=== PATIENT | female | born 1965 | race Caucasian/White ===

== ENCOUNTER 2018-02-04 12:13 | Inpatient (IN) | payer BC ==
[2018-02-04 13:24] LABS: ADD MAN DIFF? NO
[2018-02-04 13:38] LABS: WHITE BLOOD COUNT 7.7 10^3/ul (4.8-10.8)
[2018-02-04 13:38] LABS: BASOPHIL # 0.1 10^3/ul (0.0-0.1); BASOPHILS % 0.8 % (0.0-2.0); EOSINOPHILS # 0.3 10^3/ul (0.0-0.5); EOSINOPHILS % 3.9 % (0.0-7.0); HEMATOCRIT 40.5 % (37.0-47.0); HEMOGLOBIN 13.4 g/dl (12.0-16.0); LYMPHOCYTES # 1.9 10^3/ul (0.8-2.9); LYMPHOCYTES % 24.8 % (15.0-51.0); MEAN CORPUSCULAR HEMOGLOBIN 29.8 pg (29.0-33.0); MEAN CORPUSCULAR HGB CONC 33.1 g/dl (32.0-37.0); MEAN PLATELET VOLUME 9.5 fl (7.4-10.4); MONOCYTE # 0.7 10^3/ul (0.3-0.9); MONOCYTES % 9.5 % (0.0-11.0); NEUTROPHIL # 4.7 10^3/ul (1.6-7.5); NEUTROPHILS % 60.7 % (39.0-77.0); PLATELET COUNT 325 10^3/UL (140-415); RED CELL DISTRIBUTION WIDTH 14.5 % (11.5-14.5)
[2018-02-04 13:54] LABS: ALANINE AMINOTRANSFERASE 42 IU/L (13-69); ALBUMIN 4.7 g/dl (3.3-4.9); ALBUMIN/GLOBULIN RATIO 1.51; ALKALINE PHOSPHATASE 73 IU/L (42-121); ANION GAP 15 (8-16); ASPARTATE AMINO TRANSFERASE 23 IU/L (15-46); BILIRUBIN,INDIRECT 0.2 mg/dl (0-1.1); BILIRUBIN,TOTAL 0.2 mg/dl (0.2-1.3); CARBON DIOXIDE 24 mmol/L (21-31); CHLORIDE 107 mmol/L (97-110); GLUCOSE 95 mg/dl (70-220); TOTAL PROTEIN 7.8 g/dl (6.1-8.1)
[2018-02-04] MEDS ORDERED: GELATIN SIZE 100 SPONGE (13:54)
[2018-02-04 13:56] LABS: BLOOD UREA NITROGEN 18 mg/dl (7-20); CALCIUM 9.6 mg/dl (8.4-10.2); CREATININE 0.77 mg/dl (0.44-1.00); SODIUM 142 mmol/L (135-144)
[2018-02-04 13:57] LABS: INR 0.94; PROTIME 12.7 Sec (11.9-14.9)
[2018-02-04] MEDS ORDERED: ROCURONIUM 50 MG INJ ×2 (14:27→16:48)
[2018-02-04] MEDS ORDERED: GLYCOPYRROLATE 0.4 MG INJ ×3 (14:27→16:48)
[2018-02-04] MEDS ORDERED: SUCCINYLCHOLINE CHLORIDE 100 MG/5 ML SYG IV (14:27)
[2018-02-04] MEDS ORDERED: LIDOCAINE 2% (SDV) 5 ML INJ (14:27)
[2018-02-04] MEDS ORDERED: PROPOFOL 20 ML (14:27)
[2018-02-04] MEDS ORDERED: NEOSTIGMINE 3 MG/3 ML SYRINGE ×2 (14:27→16:48)
[2018-02-04] MEDS ORDERED: MEPERIDINE 100 MG INJ (14:27)
[2018-02-04] MEDS ORDERED: CEFAZOLIN 1 GM INJ (15:08)
[2018-02-04] MEDS: POLYMYXIN B 500000 UNIT INJ (15:47)
[2018-02-04] MEDS: THROMBIN 5000 UNIT VIAL (15:47)
[2018-02-04] MEDS: BACITRACIN 50000 UNITS INJ (15:47)
[2018-02-04] MEDS ORDERED: METOCLOPRAMIDE 10 MG INJ (16:47)
[2018-02-04] MEDS ORDERED: ONDANSETRON 4 MG INJ (16:47)
[2018-02-04] MEDS ORDERED: HYDROmorphONE (0.2 MG/ML) 10ML SYG IV ×2 (18:30)
[2018-02-04] MEDS ORDERED: HYDROmorphONE 1 MG/ML SYG IV (18:30)
[2018-02-04] MEDS ORDERED: LABETALOL HCL 20MG INJ IV (18:30)
[2018-02-04] MEDS ORDERED: MEPERIDINE 25 MG INJ IV (18:30)
[2018-02-04] MEDS ORDERED: DIPHENHYDRAMINE 25 MG CAP PO (18:30)
[2018-02-04] MEDS ORDERED: FENTAnyl 50 MCG/ML VIAL IV ×3 (18:30)
[2018-02-04] MEDS ORDERED: DIAZEPAM 5 MG TAB PO (18:30)
[2018-02-04] MEDS ORDERED: NALOXONE (0.4 MG/ML) INJ IV (18:30)
[2018-02-04] MEDS ORDERED: EPHEDrine SULFATE 50 MG/5 ML SYG IV (18:30)
[2018-02-04] MEDS ORDERED: ZOLPIDEM 5 MG TAB PO (18:30)
[2018-02-04] MEDS ORDERED: MIDAZOLAM 1 MG/ML 2 ML INJ IV (18:30)
[2018-02-04] MEDS ORDERED: OXYCODONE/ACETAMINOPHEN (5/325) TAB PO ×3 (18:30)
[2018-02-04] MEDS ORDERED: hydrALAzine 20 MG INJ IV (18:30)
[2018-02-04] MEDS ORDERED: METOCLOPRAMIDE 10 MG INJ IV (18:30)
[2018-02-04] MEDS ORDERED: HYDROmorphONE 0.5 MG/0.5 ML SYG IV (18:30)
[2018-02-04] MEDS ORDERED: BISACODYL 10 MG SUPP PR (18:30)
[2018-02-04] MEDS: ONDANSETRON 4 MG INJ IV (18:43)
[2018-02-04] MEDS: HYDROmorphONE (0.2 MG/ML) 10ML SYG IV (18:55)
[2018-02-04] MEDS: DIPHENHYDRAMINE 50 MG INJ IV (18:56)
[2018-02-04] MEDS: CEFAZOLIN 1 GM/50 ML (PMX) 50 ML IVPB (19:00)
[2018-02-04] MEDS: DOCUSATE SODIUM 100 MG CAP PO (21:00)
[2018-02-04] MEDS: D5W-0.45 NACL + KCL 20 MEQ 1,000 ML IV (21:10)
[2018-02-05] MEDS: ONDANSETRON 4 MG INJ IV ×2 (00:29→09:50)
[2018-02-05] MEDS: HYDROmorphONE 0.5 MG/0.5 ML SYG IV (00:30)
[2018-02-05] MEDS: CEFAZOLIN 1 GM/50 ML (PMX) 50 ML IVPB ×2 (02:18→10:38)
[2018-02-05] MEDS: D5W-0.45 NACL + KCL 20 MEQ 1,000 ML IV ×2 (04:23→09:51)
[2018-02-05] MEDS: ACETAMINOPHEN 325 MG TAB PO (08:52)
[2018-02-05] MEDS: DOCUSATE SODIUM 100 MG CAP PO (08:52)
[2018-02-05] MEDS: BUPROPION (XL) 150 MG TAB PO (08:52)
[2018-02-05 09:54] LABS: ADD MAN DIFF? NO
[2018-02-05 09:56] LABS: WHITE BLOOD COUNT 12.2 10^3/ul (4.8-10.8)
[2018-02-05 09:56] LABS: BASOPHILS % 0.2 % (0.0-2.0); EOSINOPHILS # 0.1 10^3/ul (0.0-0.5); EOSINOPHILS % 0.5 % (0.0-7.0); HEMOGLOBIN 11.7 g/dl (12.0-16.0); LYMPHOCYTES # 2.6 10^3/ul (0.8-2.9); LYMPHOCYTES % 20.9 % (15.0-51.0); MEAN CORPUSCULAR HEMOGLOBIN 30.6 pg (29.0-33.0); MEAN CORPUSCULAR HGB CONC 33.4 g/dl (32.0-37.0); MEAN CORPUSCULAR VOLUME 91.6 fl (82.0-101.0); MEAN PLATELET VOLUME 9.5 fl (7.4-10.4); MONOCYTE # 1.2 10^3/ul (0.3-0.9); MONOCYTES % 9.9 % (0.0-11.0); NEUTROPHIL # 8.3 10^3/ul (1.6-7.5); NEUTROPHILS % 68.2 % (39.0-77.0); PLATELET COUNT 277 10^3/UL (140-415); RED BLOOD COUNT 3.82 10^6/ul (4.20-5.40); RED CELL DISTRIBUTION WIDTH 14.3 % (11.5-14.5)
[2018-02-05 10:23] LABS: ANION GAP 10 (8-16); BLOOD UREA NITROGEN 13 mg/dl (7-20); CALCIUM 8.8 mg/dl (8.4-10.2); CARBON DIOXIDE 29 mmol/L (21-31); CHLORIDE 105 mmol/L (97-110); CREATININE 0.66 mg/dl (0.44-1.00); GLUCOSE 96 mg/dl (70-220); POTASSIUM 3.9 mmol/L (3.5-5.1); SODIUM 140 mmol/L (135-144)
[2018-02-05] MEDS ORDERED: OXYCODONE/ACETAMINOPHEN (5/325) TAB PO (14:30)
== END 2018-02-05 14:49 | disposition home or self-care (01) | DRG 518 ==
LOC: REC 12:13 → MS1 19:50
PROC: 0RR30JZ Replacement of Cervical Vertebral Disc with Synthetic Substitute, Open Approach (ICD-10-PCS; principal; 2018-02-04 14:30)
PROC: 0RS104Z Reposition Cervical Vertebral Joint with Internal Fixation Device, Open Approach (ICD-10-PCS; 2018-02-04 14:30)
PROC: 01N10ZZ Release Cervical Nerve, Open Approach (ICD-10-PCS; 2018-02-04 14:30)
PROC: 00NW0ZZ Release Cervical Spinal Cord, Open Approach (ICD-10-PCS; 2018-02-04 14:30)
DX: M50.01 Cervical disc disorder with myelopathy, high cervical region (principal); M50.11 Cervical disc disorder with radiculopathy, high cervical region; I10 Essential (primary) hypertension; F32.9 Major depressive disorder, single episode, unspecified; M40.202 Unspecified kyphosis, cervical region
CPT/HCPCS: 72052; 80048; 80053; 85025; 85610; 85730; 97116; 97161; 97530